=== PATIENT | male | born 1990 | race Caucasian/White ===

== ENCOUNTER 2021-05-05 16:31 | Emergency (ER) | payer BC ==
[2021-05-05] MEDS ORDERED: Lidocaine 1% PF 2 ML SDV INJECT ONE (16:41)
[2021-05-05] MEDS ORDERED: Bacitracin Oint 1 GM U/D Packet TOP ONE (16:41)
[2021-05-05] MEDS ORDERED: Diphtheria,Pertussis(Acell),Tetanus Vaccine 0.5 ML Syringe IM ONE (16:41)
== END 2021-05-05 17:44 | disposition home or self-care (01) ==
LOC: MW.ED 16:31
DX: S67.191A Crushing injury of left index finger, initial encounter (principal); S61.211A Laceration without foreign body of left index finger without damage to nail, initial encounter; Z23 Encounter for immunization; W23.0XXA Caught, crushed, jammed, or pinched between moving objects, initial encounter; Y92.59 Other trade areas as the place of occurrence of the external cause
CPT/HCPCS: 12001; 73140-26-F1; 73140-F1; 90471; 90715; 99283-25